=== PATIENT | female | born 1970 | race Caucasian/White ===

== ENCOUNTER 2024-11-25 16:34 | Emergency (ER) | payer OTHER ==
[2024-11-25 16:40] VITALS: BP 130/67; PULSE 67; RESP 20; TEMP 98.2; BMI 23.9
[2024-11-25] MEDS ORDERED: LIDOCAINE 5% TOPICAL PATCH ONE (18:27)
[2024-11-25] MEDS ORDERED: ACETAMINOPHEN 325 MG TABLET (FP) ONE (18:27)
[2024-11-25] MEDS: LIDOCAINE 5% TOPICAL PATCH TP ONE (18:35)
[2024-11-25] MEDS: ACETAMINOPHEN 325 MG TABLET (FP) PO ONE (18:35)
[2024-11-25 18:43] LABS: ABSOLUTE IMMATURE GRANULOCYTES 0.01 x10^3/uL (0.0-0.031); BASOPHILS # 0.01 x10^3/uL (0.01-0.08); EOSINOPHIL % 6.4 % (0.7-5.8); EOSINOPHILS # 0.34 x10^3/uL (0.04-0.36); MCHC 32.7 g/dl (32.2-35.5); MEAN CELL VOLUME 89.6 fl (79.4-94.8); MEAN PLT VOLUME 9.6 fl (9.4-12.3); MONOCYTE # 0.40 x10^3/uL (0.24-0.86); MONOCYTE % 7.5 % (4.7-12.5); RDW 12.9 % (12.3-16.6)
[2024-11-25 19:22] LABS: CO2 29.0 mmol/L (21-32); GLUCOSE,RANDOM 115.0 mg/dL (74-106)
[2024-11-25 19:25] LABS: SGPT/ALT 21.0 U/L (13-61)
[2024-11-25 19:26] LABS: CREATININE 0.6 mg/dL (0.55-1.3); SGOT/AST 16.0 U/L (15-37)
[2024-11-25 19:27] LABS: TOT PROT 7.0 g/dl (6.4-8.2)
[2024-11-25 19:28] LABS: ALK PHOS 85.0 U/L (45-117)
[2024-11-25 20:10] LABS: HCV DIAGNOSTIC IN-HOUSE W/RFLX NON-REACTIVE (NONREACTIVE)
[2024-11-25 20:12] LABS: HIV INTERPRETATION NEGATIVE (NEGATIVE)
[2024-11-25] MEDS: LIDOCAINE PATCH REMOVAL MC SCH (22:03)
== END 2024-11-25 22:13 | disposition home or self-care (01) ==
LOC: JER 16:34
DX: R07.9 Chest pain, unspecified (principal); M54.2 Cervicalgia; M54.9 Dorsalgia, unspecified
CPT/HCPCS: 36415; 71045-TC-FY; 80053; 83735; 84484; 85025; 86803; 87389; 93005; 93010; 99285-25